=== PATIENT | male | born 1980 | race Caucasian/White ===

== ENCOUNTER 2017-10-28 07:26 | Emergency (ER) | payer OTHER ==
[2017-10-28] MEDS: ONDANSETRON 4 MG INJ IV (09:24)
[2017-10-28] MEDS: morphine 4 MG/ML VIAL IV (09:24)
[2017-10-28] MEDS: SOD CHLORIDE 0.9% 1,000 ML IV (09:24)
[2017-10-28 09:27] LABS: ADD MAN DIFF? NO
[2017-10-28 09:30] LABS: WHITE BLOOD COUNT 8.5 10^3/ul (4.8-10.8)
[2017-10-28 09:30] LABS: ABNORMAL IP MESSAGE 1; BASOPHIL # 0.1 10^3/ul (0.0-0.1); BASOPHILS % 0.8 % (0.0-2.0); EOSINOPHILS # 0.1 10^3/ul (0.0-0.5); EOSINOPHILS % 1.1 % (0.0-7.0); HEMATOCRIT 45.3 % (42.0-52.0); HEMOGLOBIN 15.3 g/dl (14.0-18.0); LYMPHOCYTES # 1.8 10^3/ul (0.8-2.9); MEAN CORPUSCULAR HEMOGLOBIN 29.3 pg (29.0-33.0); MEAN CORPUSCULAR HGB CONC 33.8 g/dl (32.0-37.0); MEAN CORPUSCULAR VOLUME 86.8 fl (82.0-101.0); MEAN PLATELET VOLUME 13.2 fl (7.4-10.4); MONOCYTE # 0.5 10^3/ul (0.3-0.9); MONOCYTES % 5.7 % (0.0-11.0); NEUTROPHIL # 6.1 10^3/ul (1.6-7.5); NEUTROPHILS % 70.9 % (39.0-77.0); PLATELET COUNT 146 10^3/UL (140-415); POSITIVE DIFF @See below; RED BLOOD COUNT 5.22 10^6/ul (4.70-6.10); RED CELL DISTRIBUTION WIDTH 12.3 % (11.5-14.5)
[2017-10-28 09:49] LABS: ANION GAP 16 (8-16); BLOOD UREA NITROGEN 18 mg/dl (7-20); CALCIUM 9.8 mg/dl (8.4-10.2); CARBON DIOXIDE 27 mmol/L (21-31); CHLORIDE 106 mmol/L (97-110); GLUCOSE 95 mg/dl (70-220); POTASSIUM 3.7 mmol/L (3.5-5.1); SODIUM 145 mmol/L (135-144)
[2017-10-28 09:54] LABS: INR 0.93; PROTIME 12.5 Sec (11.9-14.9)
[2017-10-28 09:55] LABS: PARTIAL THROMBOPLASTIN TIME 29.9 Sec (25.0-35.0)
[2017-10-28] MEDS: HYDROmorphONE 0.5 MG/0.5 ML SYG IV (10:04)
[2017-10-28 10:05] LABS: TROPONIN-I < 0.012 ng/ml (0.00-0.12)
[2017-10-28] MEDS: SOD CHLORIDE 0.9% 100 ML (10:38)
[2017-10-28] MEDS: IOHEXOL 100 ML (10:38)
== END 2017-10-28 11:22 | disposition home or self-care (01) ==
LOC: E/R 07:26
DX: R07.81 Pleurodynia (principal); R55 Syncope and collapse; R09.1 Pleurisy; Z87.891 Personal history of nicotine dependence
CPT/HCPCS: 36415; 71045; 71275; 80048; 84484; 85025; 85610; 85730; 93005; 96374; 96375; 99285-25